=== PATIENT | female | born 1930 | race Caucasian/White ===

== ENCOUNTER 2017-02-05 20:57 | Emergency (ER) | payer OTHER ==
[2017-02-05 21:07] VITALS: BP 158/79; PULSE 70; TEMP 98.5; BMI 22.0
--- NOTE | 2017-02-05 21:07 | PDOC ---
History of Present Illness - History of Present Illness Initial Comments: 02/05/17 21:42 The patient is a 86 year old female, with a significant past medical history of hypertension, hld, CAD, who presents to the emergency department via ems from [facility] s/p trip and fall this evening. The patient states she was walking to her closet when she tripped and fell onto her knees and face. She states she has pain to her bilateral knees and right hip. She also reports noticing pain to her left ribs when ems transferred her onto the stretcher. She denies head trauma or loss of consciousness. She does report hitting her mouth on something and reports pain to her upper lip. She denies any other symptoms. She denies chest pain, shortness of breath, headache and dizziness. She denies fever, chills, nausea, vomit, diarrhea and constipation. She denies dysuria, frequency, urgency and hematuria. PAST MEDICAL HISTORY: hypertension, high cholesterol coronary artery disease and PAST SURGICAL HISTORY: no significant history FAMILY HISTORY: no pertinent history SOCIAL HISTORY: Pt lives in nursing facility MEDICATIONS: reviewed ALLERGIES: As per nursing notes Review of Systems General: No fevers or chills, no weakness, no weight loss HEENT: (+) pain to upper lip. No change in vision. No sore throat,. No ear pain CardioVascular: No chest pain or shortness of breath Respiratory: No cough, or wheezing. Gastrointestinal: no nausea, vomiting, diarrhea or constipation, No rectal bleeding Genitourinary: No dysuria, hematuria, or frequency Musculoskeletal: (+) bilateral knee pain, right hip pain. left lateral rib pain. Neurologic: No headache, vertigo, dizziness or loss of consciousness Psychiatric: nor depression Skin: No rashes or easy bruising Endocrine: no increased thirst or abnormal weight change Allergic: no skin or latex allergy All other systems reviewed and normal Physical Exam GENERAL: The patient is awake, alert, and fully oriented, in no acute distress. HEAD: Normal with no signs of trauma. EYES: Pupils equal, round and reactive to light, extraocular movements intact, sclera anicteric, conjunctiva clear. EXTREMITIES: Normal range of motion, no edema. left elbow: There is tenderness over palpation of the radial head with increased pain on supination and pronation of the wrist. Neurovascular distal is intact BACK: there is some tenderness on palpation over the sciatic notch area. The lumbar spine and sacral spine is nontender to palpation. The hip has some minimal tenderness on palpation laterally neurovascular distal is intact. NEUROLOGICAL: Normal speech, normal gait. PSYCH: Normal mood, normal affect. SKIN: Warm, Dry, normal turgor, no rashes or lesions noted. <Katie Bravo - Last Filed: 02/05/17 21:52> - General History Source: Patient, Family Exam Limitations: Dementia - History of Present Illness Initial Comments: 02/05/17 22:52 A portion of this note was documented by scribe services under my direction. I have reviewed the details of the note, within reason, and agree with the documentation. The case summary and management plan written by me. There was documentation by the scribe of tenderness over palpation of the elbow. This is an error there is no tenderness on palpation of the R ball. There is no tenderness or pain with supination and pronation there is no swelling or evidence of injury to the elbow forearm or wrist. In addition to the scribes documentation there is additional findings on my exam as follows However there is tenderness on palpation of the left fifth and sixth ribs laterally ribs but no ecchymosis or visible contusion. Left knee there is also a small abrasion without bleeding and there is no bony tenderness ecchymosis or swelling of the knee. Right knee there is some mild bony tenderness but no ecchymosis and neurovascular distal is intact X-rays: Chest no acute pathology Left ribs no acute fracture dislocation Right knee no acute fracture dislocation CT head no acute pathology CT right hip no acute pathology there is a right hip displacement with no acute pathology Assessment and plan: This is an 86-year-old female who sustained a mechanical trip and fall. Patient has discomfort in her ribs and right leg however there is no acute fractures. Patient was able to ambulate with billing assistant in the emergency room. Patient will be discharged back to her assisted-living facility. Patient given Tylenol for pain. <Abiola Hester I - Last Filed: 02/05/17 23:01> - General Stated Complaint: FALL Time Seen by Provider: 02/05/17 21:07 Past History <Katie Bravo - Last Filed: 02/05/17 21:52> - Past Medical History Cardiac Disorders: Yes ([place]) HTN: Yes Hypercholesterolemia: Yes - Immunization History Immunization Up to Date: Yes - Suicide/Smoking/Psychosocial Hx Smoking History: Never smoked Have you smoked in the past 12 months: No Hx Alcohol Use: Yes Substance Use Type: None, Alcohol Hx Substance Use Treatment: No <Abiola Hester I - Last Filed: 02/05/17 23:01> - Past Medical History Allergies/Adverse Reactions: Allergies Allergy/AdvReac Type Severity Reaction Status Date / Time heparin Allergy Verified 09/14/14 15:09 Penicillins Allergy Verified 09/14/14 15:09 Home Medications: Ambulatory Orders Amlodipine Besylate [Norvasc -] 10 mg PO DAILY 08/23/14 Aspirin [Aspirin EC] 81 mg PO DAILY 08/23/14 Atorvastatin Ca [Lipitor] 20 mg PO HS 08/23/14 Bimatoprost [Lumigan] 1 drop IO DAILY 08/23/14 Clopidogrel Bisulfate [Plavix -] 75 mg PO DAILY 08/23/14 Docusate Sodium [Colace -] 100 mg PO BID 08/23/14 Enalapril Maleate [Vasotec] 20 mg PO BID 08/23/14 Hydrochlorothiazide [Hctz -] 25 mg PO DAILY 08/23/14 Ketorolac Trometh 0.5% Oph Ginna [Acular (Do Not Stock)] 5 ml NR DAILY 08/23/14 Metoprolol Succinate [Toprol Xl] 50 mg PO DAILY 08/23/14 Nitroglycerin Sublingual [Nitrostat -] 0.4 mg SL PRN PRN 08/23/14 Sennosides [Senna -] 2 tab PO HS 08/23/14 Oxycodone HCl/Acetaminophen [Percocet 5/325 -] 1 tab PO TID PRN #20 tablet 09/14 Polyethylene Glycol 3350 [Miralax (For Daily Use) -] 17 gm PO DAILY #1 bottle *Physical Exam - Vital Signs Last Vital Signs Temp Pulse Resp BP Pulse Ox 98.5 F 70 18 158/79 98 02/05/17 20:59 02/05/17 20:59 02/05/17 20:59 02/05/17 20:59 02/05/17 20:59 <Katie Bravo - Last Filed: 02/05/17 21:52> ED Treatment Course - RADIOLOGY Radiograph Interpretation: EXAM: CT head without contrast IMAGES: 77 DATE OF SERVICE: 2017-02-05 20:58:35 HISTORY: Status post fall COMPARISON: None. FINDINGS: 1. There is no evidence of an acute intracranial process, intracranial hemorrhage or mass effect. 2. Ventricular size is concordant with the degree of atrophy. 3. The visualized portions of the orbits, paranasal and mastoid sinuses are unremarkable. 4. No evidence of fracture. Read By: Constance Underwood MD 02/05/2017 21:41 EST <Katie Bravo - Last Filed: 02/05/17 21:52> *DC/Admit/Observation/Transfer <Katie Bravo - Last Filed: 02/05/17 21:52> - Discharge Dispostion Admit: No <Abiola Hester I - Last Filed: 02/05/17 23:01> Diagnosis at time of Disposition: Fall Qualifiers: Encounter type: initial encounter Qualified Code(s): W19.XXXA - Unspecified fall, initial encounter - Discharge Dispostion Disposition: HOME Condition at time of disposition: Good - Patient Instructions Additional Instructions: Tylenol or Motrin as needed for pain. Return to the emergency department immediately with ANY new, persistent or worsening symptoms. Continue any medications as previously prescribed by your physician. You should follow up with your primary doctor as soon as possible regarding today's emergency department visit. . Please make sure your doctor reviews the results of your emergency evaluation. Thank you for coming to the Emergency Department today for your care. It was a pleasure to see you today. Please note that your evaluation is INCOMPLETE until you follow-up with your doctor.
[2017-02-05] MEDS ORDERED: ACETAMINOPHEN 325 MG TABLET (FP) PO ONE (22:54)
[2017-02-05] MEDS ORDERED: ACETAMINOPHEN 325 MG TABLET (FP) ONE (23:26)
== END 2017-02-06 00:09 | disposition home or self-care (01) ==
LOC: FER 20:57
DX: Z04.3 Encounter for examination and observation following other accident (principal); W18.39XA Other fall on same level, initial encounter; Y93.89 Activity, other specified; Y92.122 Bedroom in nursing home as the place of occurrence of the external cause; I10 Essential (primary) hypertension; E78.5 Hyperlipidemia, unspecified; I25.10 Atherosclerotic heart disease of native coronary artery without angina pectoris; I25.2 Old myocardial infarction
CPT/HCPCS: 70450-TC; 71010-TC; 71101-TC; 73562-TC-RT; 73700-TC-RT; 99281-25

== ENCOUNTER 2017-02-11 17:44 | Inpatient (IN) | payer OTHER ==
--- NOTE | 2017-02-11 17:46 | PDOC ---
History of Present Illness <Constance Florian - Last Filed: 02/11/17 18:30> - General History Source: Patient Exam Limitations: No Limitations - History of Present Illness Initial Comments: 02/11/17 18:50 The patient is an 86 year old female with significant history of hypertension, hyperlipidemia, CAD s/p [place], R hip arthroplasty, sent from the OR for complaints of right lower extremity pain that began today. Patient was seen in the ED approximately 6 days ago s/p fall. ER course was notable for right hip CT that showed no evidence of acute pathology. The patient states her pain today feels like it is "shooting" down her RLE and is worse with bearing weight. She also complains of left thoracic pain. She states her pain began after being lifted during her last ED visit. No fever or chills. No back pain. <Sara Ventura - Last Filed: 02/11/17 21:15> <Tiara Diego - Last Filed: 02/12/17 05:53> - General Chief Complaint: Injury Stated Complaint: LEFT RIBCAGE, RT KNEE PAIN Time Seen by Provider: 02/11/17 17:46 Past History - Past Medical History Cardiac Disorders: Yes ([place]) HTN: Yes Hypercholesterolemia: Yes - Immunization History Immunization Up to Date: Yes - Suicide/Smoking/Psychosocial Hx Smoking History: Never smoked Have you smoked in the past 12 months: No Hx Alcohol Use: Yes Drug/Substance Use Hx: No Substance Use Type: None, Alcohol Hx Substance Use Treatment: No <Constance Florian - Last Filed: 02/11/17 18:30> <Sara Ventura - Last Filed: 02/11/17 21:15> <Tiara Diego - Last Filed: 02/12/17 05:53> - Past Medical History Allergies/Adverse Reactions: Allergies Allergy/AdvReac Type Severity Reaction Status Date / Time heparin Allergy Verified 09/14/14 15:09 Penicillins Allergy Verified 09/14/14 15:09 Home Medications: Ambulatory Orders Amlodipine Besylate [Norvasc -] 10 mg PO DAILY 08/23/14 Aspirin [Aspirin EC] 81 mg PO DAILY 08/23/14 Atorvastatin Ca [Lipitor] 10 mg PO HS 08/23/14 Bimatoprost [Lumigan] 1 drop OU DAILY 08/23/14 Clopidogrel Bisulfate [Plavix -] 75 mg PO DAILY 08/23/14 Docusate Sodium [Colace -] 100 mg PO DAILY 08/23/14 Enalapril Maleate [Vasotec] 20 mg PO BID 08/23/14 Hydrochlorothiazide [Hctz -] 25 mg PO DAILY 08/23/14 Ketorolac Trometh 0.5% Oph Ginna [Acular (Do Not Stock)] 5 ml NR DAILY 08/23/14 Metoprolol Succinate [Toprol Xl] 50 mg PO DAILY 08/23/14 Nitroglycerin Sublingual [Nitrostat -] 0.4 mg SL PRN PRN 08/23/14 Tobramycin 0.3% Ophth Soln [Tobrex *Ophthalmic Solution*] 1 drop OU ASDIR Review of Systems - Review of Systems Able to Perform ROS?: Yes Comments:: 02/11/17 18:59 GENERAL/CONSTITUTIONAL: No fever or chills. No weakness. HEAD, EYES, EARS, NOSE AND THROAT: No change in vision. No ear pain or discharge. No sore throat. CARDIOVASCULAR: No chest pain or shortness of breath. RESPIRATORY: No cough, wheezing, or hemoptysis. GASTROINTESTINAL: No nausea, vomiting, diarrhea or constipation. GENITOURINARY: No dysuria, frequency, or change in urination. MUSCULOSKELETAL: +Right hip pain/RLE pain. +L thoracic pain. No neck or back pain. SKIN: No rash NEUROLOGIC: No headache, vertigo, loss of consciousness, or change in strength/ sensation. ENDOCRINE: No increased thirst. No abnormal weight change. HEMATOLOGIC/LYMPHATIC: No anemia, easy bleeding, or history of blood clots. ALLERGIC/IMMUNOLOGIC: No hives or skin allergy. <Sara Ventura - Last Filed: 02/11/17 21:15> *Physical Exam - Physical Exam Comments: GENERAL: Awake, alert, and fully oriented, in no acute distress HEAD: No signs of trauma EYES: PERRLA, EOMI, sclera anicteric, conjunctiva clear ENT: Auricles normal inspection, hearing grossly normal, nares patent, oropharynx clear without exudates. Moist mucosa NECK: Normal ROM, supple, no lymphadenopathy, JVD, or masses LUNGS: +Ecchymosis to L lower rib margin, mid-axillary line. +Tenderness to palpation. Breath sounds equal, clear to auscultation bilaterally. No wheezes, and no crackles HEART: Regular rate and rhythm, normal S1 and S2, no murmurs, rubs or gallops ABDOMEN: Soft, nontender, normoactive bowel sounds. No guarding, no rebound. No masses EXTREMITIES: Normal range of motion, no edema. No clubbing or cyanosis. No cords , erythema, or tenderness NEUROLOGICAL: Cranial nerves II through XII grossly intact. Normal speech. Motor and sensation intact. Gait not tested due to nature of complaint. SKIN: Warm, Dry, normal turgor, no rashes or lesions noted. <Constance Florian - Last Filed: 02/11/17 18:30> - Vital Signs Last Vital Signs Temp Pulse Resp BP Pulse Ox 97.8 F 68 18 170/79 98 02/11/17 17:45 02/11/17 17:45 02/11/17 17:45 02/11/17 17:45 02/11/17 17:45 <Sara Ventura - Last Filed: 02/11/17 21:15> - Vital Signs Last Vital Signs Temp Pulse Resp BP Pulse Ox 97.8 F 63 16 168/84 98 02/11/17 17:45 02/11/17 20:22 02/11/17 20:22 02/11/17 20:22 02/11/17 20:22 <Tiara Diego - Last Filed: 02/12/17 05:53> ED Treatment Course - RADIOLOGY Radiograph Interpretation: 02/11/17 21:15 Images read and reviewed by Dr. Richard. Chest CT without contrast. Impression: No enlarged mediatinal or hilar lymph nodes are identified on this noncontrast exam. Moderate to large hiatal hernia. COPD changes and mild bibasal atelectactic changes without evidence of focal infiltrates. 3 mm juxtaplerual pulmonary nodule in the left upper lobe, posterior lateral. No gross rib fracture is identified, bilaterally. However, posterior lateral and lateral arch of both 12th ribs were not included. CT of pelvis without contrast. Impression: Right hip prosthesis in satisfactory alignment. No gross acute fracture or dislocation is identified. Left hip joint is intact. Correlate clinically to determine further evaluation. <Sara Ventura - Last Filed: 02/11/17 21:15> - LABORATORY CBC & Chemistry Diagram: 02/11/17 21:30 02/11/17 21:30 - ADDITIONAL ORDERS Additional order review: Laboratory Results 02/11/17 02/11/17 21:34 21:30 Sodium 132 L Potassium 3.3 L Chloride 98 Carbon Dioxide 24 Anion Gap 10 BUN 12 Creatinine 0.6 Creat Clearance w eGFR > 60 Random Glucose 165 H D Calcium 9.0 Total Bilirubin 0.6 D AST 30 ALT 16 Alkaline Phosphatase 62 Total Protein 6.9 Albumin 3.9 Urine Color Yellow Urine Appearance Clear Urine pH 7.5 Ur Specific [place] 1.015 Urine Protein Negative Urine Glucose (UA) Negative Urine Ketones Negative Urine Blood Negative Urine Nitrite Negative Urine Bilirubin Negative Urine Urobilinogen 0.2 02/11/17 21:30 RBC 3.95 MCV 95.4 MCHC 33.5 RDW 13.0 MPV 7.5 Neutrophils % 62.6 Lymphocytes % 26.8 Monocytes % 7.4 Eosinophils % 0.5 Basophils % 2.7 H D - Medications Given in the ED: ED Medications Discontinued Medications Generic Name Dose Route Start Last Admin Trade Name Bianca PRN Reason Stop Dose Admin Acetaminophen 650 mg 02/11/17 20:16 02/11/17 20:29 Tylenol - PO 02/11/17 20:17 650 mg ONCE ONE Administration Magnesium Sulfate 1 gm 02/11/17 22:10 02/11/17 22:16 Magnesium Sulfate IVPB 02/11/17 22:11 1 gm ONCE ONE Administration Oxycodone/Acetaminophen 1 combo 02/11/17 20:16 02/11/17 20:28 Percocet 5/325 - PO 02/11/17 20:17 1 combo ONCE ONE Administration Potassium Chloride 20 meq 02/11/17 22:10 02/11/17 22:16 K-Dur - PO 02/11/17 22:11 20 meq ONCE ONE Administration <Tiara Diego - Last Filed: 02/12/17 05:53> Medical Decision Making - Medical Decision Making 02/11/17 21:04 Call placed to answering service of patient's PCP, Dr. Gisele Carvajal. Awaiting callback from covering physician, Dr. Preston. <Sara Ventura - Last Filed: 02/11/17 21:15> - Medical Decision Making 02/12/17 05:48 Pt was signed out to me at 7PM> SHe comes from an assisted living facility, where she essentially cares for herself; today pt noted that she was having a great deal of pain in her right leg and right side - enough to prevent her from being able to walk on her own. Pt has normal CT pelvis and CT chest (which was done, as patient was complaining of CP and rib pain after being moved manually onto the CT scanner, and after it was noted that she has bruising on her left side.) CT chest demonstrates no rib fractures. Pt cannot contact her children or any family as it is [facility]. Pt lives alone in assisted living and she is unable to ambulate. I called her PMD Wei, and spoke to Dr. Preston, her partner, who agrees that admission to observation is a prudent choice. Pt will remain in the hospital under the care of hospitalist team. She receieved percocet and tylenol for pain in the ER. Pt is A+Ox3. <Tiara Diego - Last Filed: 02/12/17 05:53> *DC/Admit/Observation/Transfer <Constance Florian - Last Filed: 02/11/17 18:30> - Attestations Scribe Attestion: 02/11/17 18:59 Documentation prepared by Sara Ventura, acting as medical record administrator for Constance Florian MD. <Sara Ventura - Last Filed: 02/11/17 21:15> - Discharge Dispostion Admit: Yes <Tiara Diego - Last Filed: 02/12/17 05:53> Diagnosis at time of Disposition: Inability to ambulate due to left hip, Inability to ambulate due to multiple joints, Leg pain, left - Discharge Dispostion Condition at time of disposition: Guarded
[2017-02-11 17:57] VITALS: BMI 22.0
[2017-02-11] MEDS ORDERED: ACETAMINOPHEN 325 MG TABLET (FP) PO ONE (20:16)
[2017-02-11] MEDS ORDERED: ACETAMINOPHEN 325 MG TABLET (FP) ONE (20:24)
[2017-02-11 21:40] LABS: BASOPHIL 2.7 % (0-2.0); EOSINOPHIL 0.5 % (0-4.5); MCHC 33.5 g/dl (32.0-36.0); MEAN CELL VOLUME 95.4 fl (80-96); MEAN PLT VOLUME 7.5 fl (7.5-11.1); NEUTROPHILS 62.6 % (42.8-82.8); PLATELET COUNT 244 K/MM3 (134-434); WHITE BLOOD COUNT 7.1 K/mm3 (4.0-10.8)
[2017-02-11 21:41] LABS: PH,URINE 7.5 (4.5-8); URINE APPEARANCE Clear; URINE BILIRUBIN Negative (NEGATIVE); URINE BLOOD Negative (NEGATIVE); URINE COLOR YELLOW; URINE GLUCOSE (UA) Negative (NEGATIVE); URINE KETONE Negative (NEGATIVE); URINE LEUK ESTERASE Negative (NEGATIVE); URINE NITRITE Negative (NEGATIVE); URINE PROTEIN Negative (NEGATIVE); URINE UROBILINOGEN 0.2 (0.2-1.0)
[2017-02-11 21:56] LABS: ALBUMIN 3.9 g/dl (3.5-5.0); ALK PHOS 62 U/L (32-92); ANION GAP 10 (8-16); BILIRUBIN,TOTAL 0.6 mg/dl (0.2-1.0); CO2 24 mmol/L (22-28); CREATININE 0.6 mg/dl (0.6-1.3); GLUCOSE,RANDOM 165 mg/dl (74-106); SGOT/AST 30 U/L (10-42); SGPT/ALT 16 U/L (10-40); TOT PROT 6.9 g/dl (6.4-8.3)
[2017-02-11] MEDS ORDERED: POTASSIUM CHLORIDE TABS 20 MEQ TABLET.ER (FP) PO ONE ×2 (22:10→22:12)
[2017-02-11] MEDS ORDERED: MAGNESIUM SULF 50% (8.12 MEQ/2 ML-1 GM VIAL) IVPB ONE (22:10)
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
[2017-02-12] MEDS ORDERED: ACETAMINOPHEN 325 MG TABLET (FP) PO PRN (01:17)
[2017-02-12] MEDS: ENALAPRIL MALEATE 10 MG TABLET (FP) PO SCH ×3 (01:24→21:42)
[2017-02-12] MEDS: DOCUSATE SODIUM 100 MG CAPSULE (FP) PO SCH ×3 (01:24→21:41)
[2017-02-12 08:46] LABS: BASOPHIL 0.8 % (0-2.0); MCH 31.8 pg (25.7-33.7); MCHC 33.9 g/dl (32.0-36.0); MEAN CELL VOLUME 93.8 fl (80-96); MEAN PLT VOLUME 7.4 fl (7.5-11.1); NEUTROPHILS 59.8 % (42.8-82.8); PLATELET COUNT 237 K/MM3 (134-434); RDW 13.1 % (11.6-15.6); WHITE BLOOD COUNT 5.4 K/mm3 (4.0-10.8)
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
[2017-02-12 08:59] LABS: ANION GAP 6 (8-16); CALCIUM 8.9 mg/dl (8.4-10.2); CO2 26 mmol/L (22-28); CREATININE 0.5 mg/dl (0.6-1.3); GLUCOSE,RANDOM 98 mg/dl (74-106); MAGNESIUM 2.1 mg/dL (1.8-2.4); PHOSPHOROUS 2.9 mg/dl (2.5-4.6)
[2017-02-12] MEDS ORDERED: PT OWN MED DRAWER 7, Y5N ONE (09:12)
[2017-02-12] MEDS: ASPIRIN COATED 81 MG TABLET.EC PO SCH (09:25)
[2017-02-12] MEDS: METOPROLOL SUCCINATE 50 MG TAB.SR.24H (FP) PO SCH (09:25)
[2017-02-12] MEDS: ACETAMINOPHEN WITH CODEINE 300MG/30MG TABLET PO PRN ×2 (09:26→20:20)
[2017-02-12] MEDS: CLOPIDOGREL BISULFATE 75 MG TABLET (FP) PO SCH (09:26)
[2017-02-12] MEDS ORDERED: FLU VACCINE QUAD 60 MCG/0.5 ML (MDV 17-18) IM ONE (10:00)
[2017-02-12] MEDS: TOBRAMYCIN 0.3% OPHTH SOLN 5 ML BOTTLE OU SCH (10:03)
[2017-02-12] MEDS ORDERED: morphine CARPU-JECT 2 MG/1 ML DISP.SYRIN IVPB ONE (12:51)
--- NOTE | 2017-02-12 17:22 | CON.ORTH ---
Consult Consult Specialty:: ortho - History of Present Illness Chief Complaint: RLE pain History of Present Illness: 86y F here for worsening RLE pain -pain is worst about the knee -sometimes radiates down to the ankle -no pain lying in bed -no back pain, radicular pain -pain only felt trying to weight bear -no injury -no pain elsewhere - History Source History Provided By: Patient Limitations to Obtaining History: No Limitations - Past Medical History ...: No - Alcohol/Substance Use Hx Alcohol Use: Yes - Smoking History Smoking history: Never smoked Have you smoked in the past 12 months: No Home Medications - Allergies Allergies/Adverse Reactions: Allergies Allergy/AdvReac Type Severity Reaction Status Date / Time heparin Allergy Verified 09/14/14 15:09 Penicillins Allergy Verified 09/14/14 15:09 - Home Medications Home Medications: Ambulatory Orders Amlodipine Besylate [Norvasc -] 10 mg PO DAILY 08/23/14 Aspirin [Aspirin EC] 81 mg PO DAILY 08/23/14 Atorvastatin Ca [Lipitor] 10 mg PO HS 08/23/14 Bimatoprost [Lumigan] 1 drop OU DAILY 08/23/14 Clopidogrel Bisulfate [Plavix -] 75 mg PO DAILY 08/23/14 Docusate Sodium [Colace -] 100 mg PO DAILY 08/23/14 Enalapril Maleate [Vasotec] 20 mg PO BID 08/23/14 Hydrochlorothiazide [Hctz -] 25 mg PO DAILY 08/23/14 Ketorolac Trometh 0.5% Oph Ginna [Acular (Do Not Stock)] 5 ml NR DAILY 08/23/14 Metoprolol Succinate [Toprol Xl] 50 mg PO DAILY 08/23/14 Nitroglycerin Sublingual [Nitrostat -] 0.4 mg SL PRN PRN 08/23/14 Tobramycin 0.3% Ophth Soln [Tobrex *Ophthalmic Solution*] 1 drop OU ASDIR Physical Exam for Ortho Vital Signs: Vital Signs Temperature 98.6 F 02/12/17 09:23 Pulse Rate 74 02/12/17 09:23 Respiratory Rate 18 02/12/17 09:23 Blood Pressure 162/76 02/12/17 09:23 O2 Sat by Pulse Oximetry (%) 98 02/12/17 08:58 Constitutional: Yes: Well Nourished, No Distress, Calm Labs: CBC, BMP 02/12/17 07:32 02/12/17 07:32 - Lower Extremity Knee: Yes: Right, Other (tender mildly over the medial and lateral joint lines. no effusion. comfortable ROM. stable. NVID). No: Deformity, Ecchymosis, Erythema, Limited ROM Imaging - Results X-ray: Report Reviewed, Image Reviewed (R VESTA. Well fixed. Old ramus fx. ? possible lateral plateau fracture.) Cat Scan: Report Reviewed, Image Reviewed Problem List - Problems (1) Leg pain, right Assessment/Plan: -knee exam today is copasetic -may represent a stress fracture -will follow up CT results -if CT neg, can use knee immobilizer and weight bear as tolerated with walker -will follow up after CT Code(s): M79.604 - PAIN IN RIGHT LEG
[2017-02-12] MEDS: ATORVASTATIN CA 10 MG TABLET (FP) PO SCH (21:41)
[2017-02-12] MEDS: LATANOPROST 0.005% OPHTH SOLN 2.5ML BOTTLE OU SCH (22:59)
--- NOTE | 2017-02-13 08:52 | PN ---
Physical Exam: SUBJECTIVE: Patient seen and examined, patient reports pain to right lower extremity is much improved OBJECTIVE: patient is a hypertension, hyperlipidemia, and CAD (s/p SD). Patient was admitted from the emergency department for intractable right lower extremity pain, s/p mechanical fall 6 days ago Vital Signs Period Temp Pulse Resp BP Sys/Beltre Pulse Ox Last 24 Hr 98.0 F-98.6 F 67-74 18-20 133-162/68-76 98-98 GENERAL: The patient is awake, alert, and fully oriented, in no acute distress. HEAD: Normal with no signs of trauma. EYES: PERRL, extraocular movements intact, sclera anicteric, conjunctiva clear. No ptosis. ENT: Ears normal, nares patent, oropharynx clear without exudates, moist mucous membranes. NECK: Trachea midline, full range of motion, supple. LUNGS: Breath sounds equal, clear to auscultation bilaterally, no wheezes, no crackles, no accessory muscle use. HEART: Regular rate and rhythm, S1, S2 without murmur, rub or gallop. ABDOMEN: Soft, nontender, nondistended, normoactive bowel sounds, no guarding, no rebound, no hepatosplenomegaly, no masses. EXTREMITIES: 2+ pulses, warm, well-perfused, no edema. LEFT LOWER EXTREMITY: no pain upon palpation, PROM, knee immobilizer in place NEUROLOGICAL: Cranial nerves II through XII grossly intact. Normal speech, gait not observed. PSYCH: Normal mood, normal affect. SKIN: Warm, dry, normal turgor, no rashes or lesions noted Laboratory Results - last 24 hr 02/12/17 02/12/17 07:32 07:32 Sodium 133 L Potassium 3.5 Chloride 101 Carbon Dioxide 26 Anion Gap 6 L BUN 9 D Creatinine 0.5 L Random Glucose 98 D Hemoglobin A1c % 5.7 Calcium 8.9 Phosphorus 2.9 Magnesium 2.1 Active Medications Generic Name Dose Route Start Last Admin Trade Name Freq PRN Reason Stop Dose Admin Acetaminophen 650 mg 02/12/17 01:17 Tylenol - PO Q6H PRN FEVER OR PAIN Acetaminophen/Codeine Phosphate 1 tab 02/12/17 08:49 02/12/17 20:20 Tylenol # 3 - PO 1 tab Q6H PRN Administration FEVER OR PAIN Aspirin 81 mg 02/12/17 10:00 02/12/17 09:25 Ecotrin - PO 81 mg DAILY NARINDER Administration Atorvastatin Calcium 10 mg 02/12/17 22:00 02/12/17 21:41 Lipitor - PO 10 mg HS NARINDER Administration Clopidogrel Bisulfate 75 mg 02/12/17 10:00 02/12/17 09:26 Plavix - PO 75 mg DAILY NARINDER Administration Docusate Sodium 100 mg 02/12/17 01:15 02/12/17 21:41 Colace - PO 100 mg BID NARINDER Administration Enalapril Maleate 20 mg 02/12/17 01:15 02/12/17 21:42 Vasotec - PO 20 mg BID NARINDER Administration Latanoprost 1 drop 02/12/17 22:00 02/12/17 22:59 Xalatan 0.005% Eye Drops - OU 1 drop HS NARINDER Administration Metoprolol Succinate 50 mg 02/12/17 10:00 02/12/17 09:25 Toprol Xl - PO 50 mg DAILY NARINDER Administration Tobramycin Sulfate 1 drop 02/12/17 10:00 02/12/17 10:03 Tobrex Ophthalmic Solution - OU 1 drop DAILY NARINDER Administration IMAGING ct scan of chest: copd, 3mm pulmonary nodule, no infilitrates ct of pelvis w/o contrast: right hip prosthesis, old left pelvic rami fracture CT of right lower extremity NO ACUTE FRACTURE DISLOCATION OR AVULSION INJURY TO THE RIGHT KNEE JOINT EFFUSION IS PRESENT PER dR. Vanessa Tate RADIOLOGIST ASSESSMENT/PLAN: 1) . Musculoskeletal: R- Hip/Leg Pain, s/p mechanical fall x6 days ago - continue tylenol #3 for severe pain, tylenol for minimal pain - appreciate ortho input (Lawson) - PT evaluation recommends short-term rehabilitation 2) pulm thoracic pain - patient denies, continue incentive spirometer - will require outpatient followup for pulmonary nodule 3) Cardiac: CAD s/p SD - continue plavix,asa, and lipitor HTN - continue toprol and vasotec, b/p at goal FEN - PO Fluids - Replete lytes prn - Low Na, Low Cholesterol Diet DVT Prophylaxis - OOB - SCDs - reports an ALLERGY to Lovenox and heparin reports rash disposition: patient is requesting short-term rehabilitation Code Status: Full Code Visit type - Emergency Visit Emergency Visit: Yes ED Registration Date: 02/13/17 Care time: The patient presented to the Emergency Department on the above date and was hospitalized for further evaluation of their emergent condition. - New Patient This patient is new to me today: No - Critical Care Critical Care patient: No - Discharge Referral Referred to [facility] No
[2017-02-13] MEDS ORDERED: PT OWN MED DRAWER 7, Y5N ONE ×2 (09:02→21:37)
[2017-02-13] MEDS: METOPROLOL SUCCINATE 50 MG TAB.SR.24H (FP) PO SCH (09:11)
[2017-02-13] MEDS: CLOPIDOGREL BISULFATE 75 MG TABLET (FP) PO SCH (09:11)
[2017-02-13] MEDS: TOBRAMYCIN 0.3% OPHTH SOLN 5 ML BOTTLE OU SCH (09:11)
[2017-02-13] MEDS: ENALAPRIL MALEATE 10 MG TABLET (FP) PO SCH ×2 (09:11→21:40)
[2017-02-13] MEDS: ASPIRIN COATED 81 MG TABLET.EC PO SCH (09:11)
[2017-02-13] MEDS: DOCUSATE SODIUM 100 MG CAPSULE (FP) PO SCH ×2 (09:11→21:39)
[2017-02-13 09:14] LABS: BASOPHIL 0.2 % (0-2.0); EOSINOPHIL 1.9 % (0-4.5); MCH 31.8 pg (25.7-33.7); MCHC 33.1 g/dl (32.0-36.0); MEAN CELL VOLUME 96.1 fl (80-96); MEAN PLT VOLUME 7.8 fl (7.5-11.1); NEUTROPHILS 57.4 % (42.8-82.8); PLATELET COUNT 232 K/MM3 (134-434); RDW 13.3 % (11.6-15.6); WHITE BLOOD COUNT 6.1 K/mm3 (4.0-10.8)
--- NOTE | 2017-02-13 09:31 | PN ---
Progress Note (short form) - Note Progress Note: CT reviewed. No report available. There is a small area of missing cortex in the area previously seen on plain film. There is no fracture. Differential includes nutrient vessel, periarticular degenerative cyst, less likely lytic in nature. Patient may weight bear as tolerated. Can use immobilizer to help with her comfort. Ok for discharge when safely ambulating. Problem List - Problems (1) Leg pain, right Code(s): M79.604 - PAIN IN RIGHT LEG
[2017-02-13 10:05] LABS: ANION GAP 8 (8-16); CALCIUM 9.1 mg/dl (8.4-10.2); CO2 24 mmol/L (22-28); CREATININE 0.5 mg/dl (0.6-1.3); GLUCOSE,RANDOM 86 mg/dl (74-106); PHOSPHOROUS 3.4 mg/dl (2.5-4.6)
--- NOTE | 2017-02-13 11:42 | EKG ---
Test Reason : Blood Pressure : / mmHG Vent. Rate : 066 BPM Atrial Rate : 066 BPM P-R Int : 190 ms QRS Dur : 076 ms QT Int : 420 ms P-R-T Axes : 050 018 036 degrees QTc Int : 440 ms NORMAL SINUS RHYTHM NORMAL ECG WHEN COMPARED WITH ECG OF 11-NOV-2013 09:26, NONSPECIFIC T WAVE ABNORMALITY NO LONGER EVIDENT IN LATERAL LEADS Confirmed by EVELINE NOLAND MD ([id number]) on 02/13/2017 11:41:37 AM Referred By: Confirmed By:EVELINE NOLAND MD
[2017-02-13] MEDS ORDERED: MAGNESIUM HYDROX 2400MG/30ML ORAL SUSPENSION 30 ML CUP PO PRN (13:51)
[2017-02-13] MEDS: ATORVASTATIN CA 10 MG TABLET (FP) PO SCH (21:39)
[2017-02-13] MEDS: LATANOPROST 0.005% OPHTH SOLN 2.5ML BOTTLE OU SCH (21:40)
[2017-02-13] MEDS: ACETAMINOPHEN WITH CODEINE 300MG/30MG TABLET PO PRN (22:10)
--- NOTE | 2017-02-14 09:14 | PN ---
Physical Exam: SUBJECTIVE: Patient seen and examined OBJECTIVE: Vital Signs Period Temp Pulse Resp BP Sys/Beltre Pulse Ox Last 24 Hr 97.8 F-98.6 F 69-79 17-19 120-151/64-69 96-98 GENERAL: The patient is awake, alert, and fully oriented, in no acute distress. HEAD: Normal with no signs of trauma. EYES: PERRL, extraocular movements intact, sclera anicteric, conjunctiva clear. No ptosis. ENT: Ears normal, nares patent, oropharynx clear without exudates, moist mucous membranes. NECK: Trachea midline, full range of motion, supple. LUNGS: Breath sounds equal, clear to auscultation bilaterally, no wheezes, no crackles, no accessory muscle use. HEART: Regular rate and rhythm, S1, S2 without murmur, rub or gallop. ABDOMEN: Soft, nontender, nondistended, normoactive bowel sounds, no guarding, no rebound, no hepatosplenomegaly, no masses. EXTREMITIES: 2+ pulses, warm, well-perfused, no edema. NEUROLOGICAL: Cranial nerves II through XII grossly intact. Normal speech, gait not observed. PSYCH: Normal mood, normal affect. SKIN: Warm, dry, normal turgor, no rashes or lesions noted Active Medications Generic Name Dose Route Start Last Admin Trade Name Freq PRN Reason Stop Dose Admin Acetaminophen 650 mg 02/12/17 01:17 Tylenol - PO Q6H PRN FEVER OR PAIN Acetaminophen/Codeine Phosphate 1 tab 02/12/17 08:49 02/13/17 22:10 Tylenol # 3 - PO 1 tab Q6H PRN Administration FEVER OR PAIN Aspirin 81 mg 02/12/17 10:00 02/13/17 09:11 Ecotrin - PO 81 mg DAILY NARINDER Administration Atorvastatin Calcium 10 mg 02/12/17 22:00 02/13/17 21:39 Lipitor - PO 10 mg HS NARINDER Administration Clopidogrel Bisulfate 75 mg 02/12/17 10:00 02/13/17 09:11 Plavix - PO 75 mg DAILY NARINDER Administration Docusate Sodium 100 mg 02/12/17 01:15 02/13/17 21:39 Colace - PO 100 mg BID NARINDER Administration Enalapril Maleate 20 mg 02/12/17 01:15 02/13/17 21:40 Vasotec - PO 20 mg BID NARINDER Administration Latanoprost 1 drop 02/12/17 22:00 02/13/17 21:40 Xalatan 0.005% Eye Drops - OU 1 drop HS NARINDER Administration Magnesium Hydroxide 30 ml 02/13/17 13:51 02/13/17 18:16 Milk Of Magnesia - PO 30 ml PRN PRN Administration CONSTIPATION Metoprolol Succinate 50 mg 02/12/17 10:00 02/13/17 09:11 Toprol Xl - PO 50 mg DAILY NARINDER Administration Tobramycin Sulfate 1 drop 02/12/17 10:00 02/13/17 09:11 Tobrex Ophthalmic Solution - OU 1 drop DAILY NARINDER Administration ASSESSMENT/PLAN:
[2017-02-14] MEDS ORDERED: PT OWN MED DRAWER 7, Y5N ONE ×2 (09:36→09:41)
[2017-02-14] MEDS: METOPROLOL SUCCINATE 50 MG TAB.SR.24H (FP) PO SCH (09:38)
[2017-02-14] MEDS: ENALAPRIL MALEATE 10 MG TABLET (FP) PO SCH (09:38)
[2017-02-14] MEDS: ASPIRIN COATED 81 MG TABLET.EC PO SCH (09:39)
[2017-02-14] MEDS: CLOPIDOGREL BISULFATE 75 MG TABLET (FP) PO SCH (09:39)
[2017-02-14] MEDS: DOCUSATE SODIUM 100 MG CAPSULE (FP) PO SCH (09:39)
[2017-02-14] MEDS: TOBRAMYCIN 0.3% OPHTH SOLN 5 ML BOTTLE OU SCH (10:00)
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
[2017-02-14 14:04] VITALS: BP 130/61; PULSE 76; TEMP 98
== END 2017-02-14 18:21 | disposition home or self-care (01) | DRG 565 ==
LOC: FER 17:44 → UNDOADMOB 22:46 → INTOOBSV 22:46 → FM/S 22:46 → OBSVTOIN 22:46 → FM/S 02-13 11:21 → OBSVTOIN 02-13 11:21
PROVIDERS: ADMIT Internal Medicine; ATTEND Nurse Practitioner Acute Care
DX: M25.461 Effusion, right knee (principal); E87.1 Hypo-osmolality and hyponatremia; M79.661 Pain in right lower leg; I10 Essential (primary) hypertension; E78.5 Hyperlipidemia, unspecified; I25.10 Atherosclerotic heart disease of native coronary artery without angina pectoris; M79.662 Pain in left lower leg; M81.0 Age-related osteoporosis without current pathological fracture
CPT/HCPCS: 36415; 71250-TC; 72192-TC; 73560-TC-RT; 73700-TC-RT; 80048; 80053; 81003; 83036; 83735; 84100; 85025; 90688; 93005; 94010; 97116-GP; 99284-25

== ENCOUNTER 2017-08-12 09:25 | Emergency (ER) | payer OTHER ==
[2017-08-12 09:42] VITALS: BP 160/69; PULSE 70; TEMP 98.1; BMI 23.2
[2017-08-12] MEDS ORDERED: ACETAMINOPHEN 325 MG TABLET (FP) PO ONE (09:46)
--- NOTE | 2017-08-12 09:57 | PDOC ---
History of Present Illness - General Chief Complaint: Injury Stated Complaint: RT WRIST PAIN S/P SLIP & FALL Time Seen by Provider: 08/12/17 09:36 - History of Present Illness Initial Comments: 08/12/17 09:56 86 F with h/o HTN, HLD, CAD/GA presents to ED with R wrist pain after falling. Pt states she was in the bathroom reaching for a towel when she lost her balance. She states she fell backwards onto her bottom but was able to brace her fall with her R hand. Pt denies headstrike/LOC. Denies any pain anywhere other than her R wrist. She states that she was able to ambulate afterwards. Denies numbness or weakness in her R hand. Denies neck or back pain. Denies hip or leg pain. Past History - Past Medical History Allergies/Adverse Reactions: Allergies Allergy/AdvReac Type Severity Reaction Status Date / Time strawberry Allergy Mild Hives Verified 08/12/17 09:28 heparin Allergy Verified 08/12/17 09:28 Penicillins Allergy Verified 08/12/17 09:28 Home Medications: Ambulatory Orders Amlodipine Besylate [Norvasc -] 10 mg PO DAILY 08/23/14 Aspirin [Aspirin EC] 81 mg PO DAILY 08/23/14 Atorvastatin Ca [Lipitor] 10 mg PO HS 08/23/14 Bimatoprost [Lumigan] 1 drop OU DAILY 08/23/14 Clopidogrel Bisulfate [Plavix -] 75 mg PO DAILY 08/23/14 Docusate Sodium [Colace -] 100 mg PO DAILY 08/23/14 Enalapril Maleate [Vasotec] 20 mg PO BID 08/23/14 Hydrochlorothiazide [Hctz -] 25 mg PO DAILY 08/23/14 Ketorolac Trometh 0.5% Oph Ginna [Acular (Do Not Stock)] 5 ml NR DAILY 08/23/14 Metoprolol Succinate [Toprol Xl] 50 mg PO DAILY 08/23/14 Nitroglycerin Sublingual [Nitrostat -] 0.4 mg SL PRN PRN 08/23/14 Tobramycin 0.3% Ophth Soln [Tobrex Ophthalmic Solution -] 1 drop OU ASDIR Anemia: No Asthma: No Cancer: No Cardiac Disorders: Yes (GA) CVA: No COPD: No Dementia: No Diabetes: No HTN: Yes Hypercholesterolemia: Yes Seizures: No Thyroid Disease: No - Surgical History Orthopedic Surgery: Yes (right hip) - Immunization History Immunization Up to Date: Yes - Suicide/Smoking/Psychosocial Hx Smoking History: Never smoked Have you smoked in the past 12 months: No Information on smoking cessation initiated: No Hx Alcohol Use: No Drug/Substance Use Hx: No Substance Use Type: None Hx Substance Use Treatment: No Review of Systems - Review of Systems Comments:: 08/12/17 11:18 "GENERAL/CONSTITUTIONAL: No fever or chills. No weakness. HEAD, EYES, EARS, NOSE AND THROAT: No change in vision. No ear pain or discharge. No sore throat. CARDIOVASCULAR: No chest pain or shortness of breath. RESPIRATORY: No cough, wheezing, or hemoptysis. GASTROINTESTINAL: No nausea, vomiting, diarrhea or constipation. GENITOURINARY: No dysuria, frequency, or change in urination. MUSCULOSKELETAL: R wrist pain SKIN: No rash NEUROLOGIC: No headache, vertigo, loss of consciousness, or change in strength/ sensation. ENDOCRINE: No increased thirst. No abnormal weight change. HEMATOLOGIC/LYMPHATIC: No anemia, easy bleeding, or history of blood clots. ALLERGIC/IMMUNOLOGIC: No hives or skin allergy. " *Physical Exam - Vital Signs Last Vital Signs Temp Pulse Resp BP Pulse Ox 98.1 F 70 18 160/69 98 08/12/17 09:25 08/12/17 09:25 08/12/17 09:25 08/12/17 09:25 08/12/17 09:25 - Physical Exam Comments: 08/12/17 11:18 "GENERAL: Awake, alert, and fully oriented, in no acute distress HEAD: No signs of trauma EYES: PERRLA, EOMI, sclera anicteric, conjunctiva clear ENT: Auricles normal inspection, hearing grossly normal, nares patent, oropharynx clear without exudates. Moist mucosa NECK: Nontender, no stepoffs, Normal ROM, supple, no lymphadenopathy, JVD, or masses LUNGS: Breath sounds equal, clear to auscultation bilaterally. No wheezes, and no crackles HEART: Regular rate and rhythm, normal S1 and S2, no murmurs, rubs or gallops ABDOMEN: Soft, nontender, normoactive bowel sounds. No guarding, no rebound. No masses EXTREMITIES: + R wrist with tenderness and swelling at distal radius, no obvious deformity, distal pulses intact, neurovascularly intact NEUROLOGICAL: Cranial nerves II through XII intact. 5/5 strength and sensation in all extremities, Normal speech, normal gait, normal cerebellar function SKIN: Warm, Dry, normal turgor, no rashes or lesions noted. " Procedures - Splinting Splint Location: Right: Wrist Pre-Proc Neuro Vasc Exam: normal Hand-Made Type: orthoglass Splint Type: Yes: Sugar Tong Post-Proc Neuro Vasc Exam: normal Pérez Bandage: 2" Sling: Yes Complications: No ED Treatment Course - RADIOLOGY Radiology Studies Ordered: Category Date Time Status FOREARM- RIGHT [RAD] Stat Radiology 08/12/17 09:46 Ordered WRIST- RIGHT [RAD] Stat Radiology 08/12/17 09:46 Ordered Medical Decision Making - Medical Decision Making 08/12/17 11:00 86 F with R wrist pain after FOOSH. Possible distal radius fx. Pt with no signs of head trauma or other injury. - XR R forearm 08/12/17 11:21 XR with distal radius fx, minimal displacement. Spoke with Dr. Lawson, who agrees with plan to splint and follow up as outpt. 08/12/17 12:05 Pt placed in sugartong splint Sling applied Pt is well appearing, with normal vitals. Clinically stable for DC at this time. I discussed the physical exam findings, ancillary test results and final diagnoses with the patient. I answered all of the patient's questions. The patient was satisfied with the care received and felt comfortable with the discharge plan and treatment plan. The patient agrees to follow up with the primary care physician within 24-72 hours. *DC/Admit/Observation/Transfer Diagnosis at time of Disposition: Distal radius fracture - Discharge Dispostion Disposition: HOME Condition at time of disposition: Stable - Referrals Referrals: Kyle Lawson MD [Staff Physician] - - Patient Instructions Printed Discharge Instructions: DI for Wrist Fracture Additional Instructions: You have a wrist fracture. Keep your arm in the splint at ALL times until you are able to follow up with an orthopedic surgeon. Call the number provided to make an appointment with our orthopedist within 1 week. If you experience any worsening pain, swelling, numbness, or any other concerning symptoms, return to the ER immediately. - Post Discharge Activity - Attestations Physician Attestion: 08/12/17 12:06 I, Dr. Kyle Macias MD, attest that this document has been prepared under my direction and personally reviewed by me in its entirety. I further attest, that it accurately reflects all work, treatment, procedures and medical decision -making performed by me.
[2017-08-12] MEDS ORDERED: ACETAMINOPHEN 325 MG TABLET (FP) ONE (10:07)
== END 2017-08-12 12:36 | disposition home or self-care (01) ==
LOC: FER 09:25
PROC: 2W3DX1Z Immobilization of Left Lower Arm using Splint (ICD-10-PCS; principal; 2017-08-12)
DX: S52.501A Unspecified fracture of the lower end of right radius, initial encounter for closed fracture (principal); W18.39XA Other fall on same level, initial encounter; Y93.E1 Activity, personal bathing and showering; Y92.002 Bathroom of unspecified non-institutional (private) residence as the place of occurrence of the external cause; I10 Essential (primary) hypertension; E78.5 Hyperlipidemia, unspecified; I25.10 Atherosclerotic heart disease of native coronary artery without angina pectoris; I25.2 Old myocardial infarction; Z88.0 Allergy status to penicillin; Z88.8 Allergy status to other drugs, medicaments and biological substances; Z79.82 Long term (current) use of aspirin
CPT/HCPCS: 29125; 73090-TC-RT-FY; 99282-25

== ENCOUNTER 2017-08-13 15:10 | Emergency (ER) | payer OTHER ==
--- NOTE | 2017-08-13 15:16 | PDOC ---
History of Present Illness - History of Present Illness Initial Comments: 08/13/17 15:21 The patient is a 86 year old female, with a significant past medical history of hypertension, hyperlipidemia, CAD s/p NH, R hip arthroplasty, who returns to the emergency department for evaluation of bluish color to her right hand and digits after being diagnosed with a wrist fracture and placed in a splint yesterday. The patient states she was advised to see her doctor if her hand or fingers turned blue, however, the patient states she can not get a hold of her doctor. The patient admits to keeping her arm elevated as much as possible. She states she just bought a sling because she "figured it should be in a sling". She denies numbness or tingling to the digits of her right hand. She states she takes tramadol at night before bed for pain. She states she bought Tylenol but has not started using it. She denies chest pain, shortness of breath, headache and dizziness. She denies fever, chills, nausea, vomit, diarrhea and constipation. She denies dysuria, frequency, urgency and hematuria. Allergies: Heparin, Penicillins <Katie Bravo - Last Filed: 08/13/17 15:54> <Arcenio Starr - Last Filed: 08/13/17 17:24> - General Chief Complaint: Edema Stated Complaint: ECCHYMOSIS AND SWELLING TO RIGHTHAND Time Seen by Provider: 08/13/17 15:13 Past History <Katie Bravo - Last Filed: 08/13/17 15:54> - Past Medical History Anemia: No Asthma: No Cancer: No Cardiac Disorders: Yes (NH) CVA: No COPD: No Dementia: No Diabetes: No HTN: Yes Hypercholesterolemia: Yes Seizures: No Thyroid Disease: No - Surgical History Orthopedic Surgery: Yes (right hip) - Immunization History Immunization Up to Date: Yes - Suicide/Smoking/Psychosocial Hx Smoking History: Never smoked Have you smoked in the past 12 months: No Hx Alcohol Use: No Drug/Substance Use Hx: No Substance Use Type: None Hx Substance Use Treatment: No <Arcenio Starr - Last Filed: 08/13/17 17:24> - Past Medical History Allergies/Adverse Reactions: Allergies Allergy/AdvReac Type Severity Reaction Status Date / Time strawberry Allergy Mild Hives Verified 08/13/17 15:13 heparin Allergy Verified 08/13/17 15:12 Penicillins Allergy Verified 08/13/17 15:12 Home Medications: Ambulatory Orders Amlodipine Besylate [Norvasc -] 10 mg PO DAILY 08/23/14 Aspirin [Aspirin EC] 81 mg PO DAILY 08/23/14 Atorvastatin Ca [Lipitor] 10 mg PO HS 08/23/14 Bimatoprost [Lumigan] 1 drop OU DAILY 08/23/14 Clopidogrel Bisulfate [Plavix -] 75 mg PO DAILY 08/23/14 Docusate Sodium [Colace -] 100 mg PO DAILY 08/23/14 Enalapril Maleate [Vasotec] 20 mg PO BID 08/23/14 Hydrochlorothiazide [Hctz -] 25 mg PO DAILY 08/23/14 Ketorolac Trometh 0.5% Oph Ginna [Acular (Do Not Stock)] 5 ml NR DAILY 08/23/14 Metoprolol Succinate [Toprol Xl] 50 mg PO DAILY 08/23/14 Nitroglycerin Sublingual [Nitrostat -] 0.4 mg SL PRN PRN 08/23/14 Tobramycin 0.3% Ophth Soln [Tobrex Ophthalmic Solution -] 1 drop OU ASDIR Review of Systems - Review of Systems Able to Perform ROS?: Yes Comments:: 08/13/17 15:22 CONSTITUTIONAL: Absent: fever, chills, diaphoresis, generalized weakness, malaise, loss of appetite HEENT: Absent: rhinorrhea, nasal congestion, throat pain, throat swelling, difficulty swallowing, mouth swelling, ear pain, eye pain, visual Changes CARDIOVASCULAR: Absent: chest pain, syncope, palpitations, irregular heart rate, lightheadedness , peripheral edema RESPIRATORY: Absent: cough, shortness of breath, dyspnea with exertion, orthopnea, wheezing, stridor, hemoptysis GASTROINTESTINAL: Absent: abdominal pain, abdominal distension, nausea, vomiting, diarrhea, constipation, melena, hematochezia GENITOURINARY: Absent: dysuria, frequency, urgency, hesitancy, hematuria, flank pain, genital pain MUSCULOSKELETAL: Absent: myalgia, arthralgia, joint swelling SKIN: (+) blue color to right hand and digits s/p wrist Fx. Absent: rash, itching, pallor HEMATOLOGIC/IMMUNOLOGIC: Absent: easy bleeding, easy bruising, lymphadenopathy, frequent infections ENDOCRINE: Absent: unexplained weight gain, unexplained weight loss, heat intolerance, cold intolerance NEUROLOGIC: Absent: headache, focal weakness or paresthesia, dizziness, unsteady gait, seizure, mental status changes, bladder or bowel incontinence PSYCHIATRIC: Absent: anxiety, depression, suicidal or homicidal ideation, hallucinations <Katie Bravo - Last Filed: 08/13/17 15:54> *Physical Exam - Vital Signs Last Vital Signs Temp Pulse Resp BP Pulse Ox 98.2 F 70 16 151/88 98 08/13/17 15:12 08/13/17 15:12 08/13/17 15:12 08/13/17 15:12 08/13/17 15:12 - Physical Exam Comments: 08/13/17 15:23 GENERAL: Well developed, well nourished. Awake and alert. No acute distress. HEENT: Normocephalic, atraumatic. PERRLA, EOMI. No conjunctival pallor. Sclera are non- icteric. Moist mucous membranes. Oropharynx is clear. NECK: Supple. Full ROM. No JVD. Carotid pulses 2+ and symmetric, without bruits. No thyromegaly. No lymphadenopathy. CARDIOVASCULAR: Regular rate and rhythm. No murmurs, rubs, or gallops. Distal pulses are 2+ and symmetric. PULMONARY: No evidence of respiratory distress. Lungs clear to auscultation bilaterally. No wheezing, rales or rhonchi. ABDOMINAL: Soft. Non-tender. Non-distended. No rebound or guarding. No organomegaly. Normoactive bowel sounds. MUSCULOSKELETAL Normal range of motion at all joints. No bony deformities or tenderness. No CVA tenderness. EXTREMITIES: (+) Sugar tong splint is in place, immobilizing the right wrist from a distal radius Fx that occured yesterday. There is moderate edema of the fingers but no pain, numbness or tingling. Pulses devang full and capillary refill intact. There are ecchymoses of all 5 fingers of the right hand but no skin damage, punctures , or abrasions. There is minimal swelling of the right wrist is present after removal, no swelling or tenderness of the right forearm or elbow. SKIN: Warm and dry. Normal capillary refill. No rashes. No jaundice. NEUROLOGICAL: Alert, awake, appropriate. Cranial nerves 2-12 intact. No motor deficits in the upper extremities and lower extremities. Normoreflexic in the upper and lower extremities. Normal speech. Gait is normal without ataxia. PSYCHIATRIC: Cooperative. Good eye contact. Appropriate mood and affect. <Katie Bravo - Last Filed: 08/13/17 15:54> Medical Decision Making - Medical Decision Making 08/13/17 17:23 Sugar tong removed. Patient much more comfortable. No numbness tingling or pain in the fingertips, although the are ecchymotic and edematous. A volar splint was applied and the patient was completely comfortable. Pulses were full. Good finger to motion and good capillary refill afterwards. Instructed to return immediately if there is any numbness tingling or pain in the fingers and to follow-up with orthopedist within 3 days as directed. Fully ambulatory and in no distress upon discharge with family to follow-up as recommended <Arcenio Starr - Last Filed: 08/13/17 17:24> *DC/Admit/Observation/Transfer - Attestations Scribe Attestion: 08/13/17 15:21 Documentation prepared by Katie Bravo, acting as medical appointment clerk for Arcenio Lagos MD <Katie Bravo - Last Filed: 08/13/17 15:54> - Discharge Dispostion Admit: No <Arcenio Starr - Last Filed: 08/13/17 17:24> Diagnosis at time of Disposition: Distal radius fracture Qualifiers: Encounter type: subsequent encounter Fracture type: closed Fracture morphology : unspecified fracture morphology Laterality: right Fracture healing: with routine healing Qualified Code(s): S52.501D - Unspecified fracture of the lower end of right radius, subsequent encounter for closed fracture with routine healing - Discharge Dispostion Disposition: HOME Condition at time of disposition: Improved - Referrals Referrals: Kyle Lawson MD [Staff Physician] - - Patient Instructions Printed Discharge Instructions: How to Use a Sling, DI for Wrist Fracture, How to Take Care of Your Splint Additional Instructions: Keep the arm elevated. Especially, do not allow it to hang down at your side. Continue ice. See orthopedist as recommended for follow-up.
[2017-08-13 15:18] VITALS: BP 151/88; PULSE 70; TEMP 98.2; BMI 22.4
== END 2017-08-13 15:44 | disposition home or self-care (01) ==
LOC: FER 15:10
PROC: 2W3CX1Z Immobilization of Right Lower Arm using Splint (ICD-10-PCS; principal; 2017-08-13)
DX: S52.501D Unspecified fracture of the lower end of right radius, subsequent encounter for closed fracture with routine healing (principal); I10 Essential (primary) hypertension; I25.2 Old myocardial infarction; E78.00 Pure hypercholesterolemia, unspecified
CPT/HCPCS: 99281-25

== ENCOUNTER 2017-10-27 04:30 | Emergency (ER) | payer OTHER ==
[2017-10-27 11:48] VITALS: TEMP 98.7
--- NOTE | 2017-10-27 13:14 | PDOC ---
Medical Decision Making - Medical Decision Making 10/27/17 14:51 CT scan of the hip, reviewed with Dr. nguyen, negative Even though patient indicates pain in the hip, there is likely that the difficulty ambulating is due to knee injury. Knee x-ray is negative, but there is considerable swelling and hematoma, and there may be a ligament injury. Knee immobilizer was applied and she was more comfortable. No distal numbness tingling or pain after application. Ambulating much better with immobilizer Admission for observation was recommended, however, patient declined. draw off worker was consulted. Arrangements were made for 24 hour assistance at home. Discharged adequately ambulatory to follow-up with orthopedist or return to ER if there are further difficulties. *DC/Admit/Observation/Transfer Diagnosis at time of Disposition: Knee sprain Qualifiers: Encounter type: initial encounter Involved ligament of knee: unspecified ligament Laterality: right Qualified Code(s): S83.91XA - Sprain of unspecified site of right knee, initial encounter - Discharge Dispostion Disposition: HOME Condition at time of disposition: Improved Decision to Admit order: No - Referrals Referrals: Kyle Lawson MD [Staff Physician] - 1 week - Patient Instructions Printed Discharge Instructions: DI for Knee Sprain, How to Use a Knee Immobilizer Additional Instructions: Rest, ice, elevate, Tylenol, knee immobilizer as directed Assistance with standing and walking at all times Consult unemployment specialist within 1 week for further evaluation and treatment. - Post Discharge Activity
[2017-10-27 13:21] VITALS: BP 150/86; PULSE 68
== END 2017-10-27 13:23 | disposition home or self-care (01) ==
LOC: FER 04:30
PROC: 2W3QX1Z Immobilization of Right Lower Leg using Splint (ICD-10-PCS; principal; 2017-10-27)
DX: S83.91XA Sprain of unspecified site of right knee, initial encounter (principal); X58.XXXA Exposure to other specified factors, initial encounter; Y93.89 Activity, other specified; Y92.9 Unspecified place or not applicable
CPT/HCPCS: 70450-TC; 73523-TC-FY; 73560-TC-RT-FY; 73700-TC-RT; 99281-25